=== PATIENT | female | born 1980 | race Caucasian/White ===

== ENCOUNTER → 2023-12-04 07:10 | Outpatient (REF) | payer OTHER, SELFPAY | LOC: WDC 07:10 | PROVIDERS: ATTENDING PHYSICIAN Obstetrics & Gynecology; FAMILY PHYSICIAN Nurse Practitioner Adult Health | DX: Z12.31 Encounter for screening mammogram for malignant neoplasm of breast (principal) | CPT/HCPCS: 77063; 77067 ==

== ENCOUNTER → 2024-03-29 16:04 | Outpatient (REF) | payer OTHER, SELFPAY | LOC: RAD 16:04 | PROVIDERS: ATTENDING PHYSICIAN Nurse Practitioner Adult Health | DX: M25.562 Pain in left knee (principal) | CPT/HCPCS: 73564 ==

== ENCOUNTER 2024-07-30 20:35 | Emergency (ER) | payer OTHER, SELFPAY ==
[2024-07-30 20:42] VITALS: BP 152/97
[2024-07-30 20:56] LABS: % Basophils 0.3 % (0-2); % Eosinophils 0.9 % (0-6); % Immature Granulocytes 0.4 % (0-0.5); % Lymphocytes 22.2 % (20.5-51.1); % Monocytes 10.1 % (1.7-9.3); % Neutrophils 66.1 % (42.2-75.2); Absolute Eosinophils 0.1 10^3/uL (0-0.7); Absolute Lymphocytes 2.2 10^3/uL (1.2-3.4); Absolute Neutrophils 6.6 10^3/uL (1.4-6.5); Hematocrit 41.6 % (37.0-47.0); Hemoglobin 13.9 g/dL (12.0-16.0); Mean Corp Hgb Conc. 33.4 g/dL (33.0-37.0); Mean Corpuscular Hgb 29.2 pg (27.0-31.0); Mean Corpuscular Volume 87.4 fL (81.0-99.0); Mean Platelet Volume 9.2 fL (7.4-10.4); Nucleated Red Blood Cells % 0 %; Platelet Count 286 10^3/uL (130-400); Red Blood Cell Count 4.76 10^6/uL (4.20-5.40)
[2024-07-30 21:16] LABS: ALT (SGPT) 26 U/L (0-35); AST (SGOT) 23 U/L (14-36); Albumin 4.3 g/dl (3.5-5.0); Alkaline Phosphatase 85 U/L (38-126); Blood Urea Nitrogen 21 mg/dl (7-17); Calcium 9.2 mg/dl (8.4-10.2); Carbon Dioxide 30 mmol/L (22-30); Chloride 99 mmol/L (98-107); Glucose 99 mg/dl (70-99); Potassium 3.8 mmol/L (3.5-5.1); Sodium 137 mmol/L (135-145); Total Bilirubin 0.5 mg/dl (0.2-1.3); Total Protein 6.9 g/dl (6.3-8.2); eGFR > 60.00
[2024-07-30 21:21] LABS: Troponin I < 0.012 ng/ml
[2024-07-31 01:00] VITALS: BP 119/64
--- NOTE | 2024-07-31 01:08 | ED.GENMED ---
History of Present Illness
General
Chief Complaint: Numbness
Source: patient
Exam Limitations: none
Time Seen by Provider: 07/31/24 00:16
History of Present Illness
History of Present Illness:
This is a 43 year old female that come in with c/o right forearm numbness State that this started at 9am today. States that she had been working on her Computer. States that know it feels like there is some discomfort in the right shoulder. States
that she did fall on Thursday. States that around 7:30pm tonight she started to feel a little nauseated but this may have been because she was getting a little anxious. Denies any fever, chills, chest pain, SOB, abd pain, vomiting, diarrhea,
headache, dizziness, urinary burning.
Past History
Past History
ED Past Medical History: HTN and Other (PCOS)
ED Past Surgical History: (x 1) and Other (Gastric sleeve)
Social History
Tobacco: Former smoker
Alcohol: None
Personal:
Living: with family
Review of Systems
Review of Systems
All Other Systems: ROS reviewed and negative except as documented in HPI and ROS
Constitutional: Reports no symptoms; Denies fever or chills
EENT: Reports no symptoms
Respiratory: Reports no symptoms; Denies cough or trouble breathing
Cardiac: Reports no symptoms; Denies chest pain
ABD/GI: Reports nausea; Denies abdominal pain, vomiting or diarrhea
: Reports no symptoms; Denies urgency
Musculoskeletal: Reports no symptoms
Skin: Reports no symptoms
Neurological: Reports numbness (Right forearm)
Psychiatric: Reports no symptoms
Phy Exam
General Physical Exam
General Presentation: well appearing and no apparent distress
General age: appears stated age
General Skin: warm and dry
General Habitus: obese
General Mental: alert
General Hydration: appears well hydrated
ENT Exam
ENT Exam: TM's normal, pharynx normal and neck supple
Eye Exam
Eye Exam: EOMI
Cardiovascular Exam
Cardiovascular Exam: regular rate/rhythm, no edema, no murmur and normal peripheral pulses
Pulmonary Exam
Pulmonary Exam: lungs clear, no respiratory distress, no rales, chest non tender, no crackles, no rhonchi, no wheezing and no cough
Gastrointestinal Exam
Gastrointestinal Exam: normal bowel sounds, non tender, soft, no organomegaly, no pulsatile mass, non distended and other (Obese)
Musculoskeletal Exam
Musculoskeletal Exam: full ROM, no edema and other (Slight posterior right shoulder tenderness with palpation. Negative for discomfort with abduction or cross over)
Skin Exam
Skin Exam: normal color, warm/dry, no rash and no petechia
Course
Orders/Labs/Results
Orders:
Orders
07/30/24 20:36
ECG [Electrocardiogram (*1)] Urgent
Reason for Study: Other
Other Reason for Exam: numbness
EKG- Treatment ONCE
07/30/24 20:47
Complete Blood Count/With Diff Urgent
Comprehensive Metabolic Panel Urgent
Troponin I Urgent
07/31/24 00:53
US Periph Venous UPPER Ext RT Urgent
Comment:
Reason For Exam: Right lower abd numbness
Abnormal Lab Results
07/30/24
20:47
Absolute Neuts (auto) 6.6 H 10^3/uL
(1.4-6.5)
Absolute Monos (auto) 1.0 H 10^3/uL
(0.1-0.6)
Monocytes % 10.1 H %
(1.7-9.3)
BUN 21 H mg/dl
(7-17)
07/30/24 20:47
07/30/24 20:47
Slight Dehydration. Otherwise normal labs. Troponin <0.012
Vital Signs
Initial and Last Documented VS:
Initial Vital Signs
Temp Pulse Resp BP Pulse Ox
98.5 F 84 18 152/97 98
07/30/24 20:42 07/30/24 20:42 07/30/24 20:42 07/30/24 20:42 07/30/24 20:42
Last Documented Vital Signs
Temp Pulse Resp BP Pulse Ox
98.5 F 70 23 119/64 94
07/30/24 20:42 07/31/24 02:30 07/31/24 02:30 07/31/24 01:00 07/31/24 02:30
MDM/Problems Addressed
Differential Diagnosis Includes:
DVT, carpal tunnel, Parasthesias
MDM/Problems Addressed:
This is a 43 year old female that comes in with c/o right forearm numbness. States that this started at 9am on Thursday morning. Then she started with some shoulder discomfort.
Will check labs, US for DVT and ECG.
Back into see patient. Explained that the US was negative. This may be related to some carpal tunnel due to her Computer work. Patient to follow up with the family doctor. Return with any concerns .
Chronic conditions affecting care:
NA
Acute Exacerbation and/or Progression of Chronic Illness:
NA
*Radiology
Radiology exam reviewed: other (US negative for DVT of the right arm. )
*Pulse Oximetry
Patient hypoxic: no
*EKG
Interpreted by ED Provider?: Yes
Heart Rate: 82
Rate: normal
Rhythm: sinus
[place]: normal axis
Interval: normal interval
QRS Pattern: normal QRS
Ischemia: no ischemia
*Administrative Operations Coordinator Interpretation
Rate: normal
Heart Rate: 80
Rhythm: sinus
*Critical Care Note
Total Time (30-74mins, 75-104mins- exclusive of procedures): Not Applicable
ED Attending Note
-
Portions of this chart may have been created with voice recognition software.� Occasional wrong word or��sound alike� substitutions may have occurred due to the inherent limitations of voice recognition software.
Discharge Plan
Departure
Patient Disposition: Home (Routine Discharge)
Date of Disposition: 07/31/24
Time of Disposition: 02:40
Patient with high blood pressure during this ER visit?: No
Condition: Good
Covid-19: Not Applicable
Discharge Problem:
Numbness and tingling of right arm
Instructions: Paresthesia (DC)
Prescriptions:
No Action
labetalol 300 MG tablet
400 mg PO BID
PNV cmb#95-ferrous fumarate-FA [] 1 EACH tablet
1 ea PO DAILY
Aspirin
81 mg PO DAILY
Calcium
1 tab PO DAILY
oxycodone-acetaminophen 5 MG/325 MG tablet
1 tab PO Q4HPRN PRN (Reason: moderate pain) Qty: 14 0RF
ferrous sulfate [FeroSul] 325 MG tablet
325 mg PO BID Qty: 60 0RF
ibuprofen 600 MG tablet
600 mg PO Q4HPRN PRN (Reason: cramps) Qty: 90 0RF
Activity Restrictions/Additional Instructions:
As discussed, your blood work shows very slight Dehydration. Please increase your water intake to 8-8oz glasses daily. Your Ultrasound is negative for any blood clots. This may be due to repetitive movement when on your computer. Follow up with the
family doctor for recheck. IF YOU HAVE INCREASED OR CHANGING NUMBNESS OR TINGLING, OR YOU HAVE ANY OTHER CONCERNS PLEASE RETURN TO THE EMERGENCY ROOM
Interventions
Interventions:
*Risk Screen - Suicide Last Done: 07/30/24 20:42
*General Assessment Last Done: 07/30/24 20:42
*Neglect/Abuse Screening Last Done: 07/30/24 20:42
ED- Fall Risk Assessment Last Done: 07/31/24 01:44
*ED COVID-19 Vaccine History Last Done: 07/30/24 20:42
Discharge Date and Time
Print Language: BELARUSIAN
[2024-07-31 02:45] VITALS: BP 129/84
== END 2024-07-31 02:58 | disposition home or self-care (01) ==
LOC: EMR 20:35
PROVIDERS: Emergency Medicine; EMERGENCY PHYSICIAN Emergency Medicine; FAMILY PHYSICIAN Nurse Practitioner Adult Health
DX: R20.2 Paresthesia of skin (principal); R20.0 Anesthesia of skin; R11.0 Nausea; M79.621 Pain in right upper arm; W19.XXXA Unspecified fall, initial encounter; E86.0 Dehydration; I10 Essential (primary) hypertension; E28.2 Polycystic ovarian syndrome; Z87.891 Personal history of nicotine dependence; Z98.84 Bariatric surgery status
CPT/HCPCS: 99284; 80053; 84484; 85025; 93005; 93971

== ENCOUNTER → 2024-10-19 10:50 | Outpatient (REF) | payer OTHER, SELFPAY | LOC: EMG 10:50 | PROVIDERS: ATTENDING PHYSICIAN Orthopaedic Surgery Hand Surgery; FAMILY PHYSICIAN Nurse Practitioner Adult Health | DX: G56.03 Carpal tunnel syndrome, bilateral upper limbs (principal); R20.0 Anesthesia of skin | CPT/HCPCS: 95886; 95911 ==

== ENCOUNTER → 2024-12-09 08:07 | Outpatient (REF) | payer OTHER, SELFPAY | LOC: WDC 08:07 | PROVIDERS: ATTENDING PHYSICIAN Student in an Organized Health Care Education/Training Program; FAMILY PHYSICIAN Nurse Practitioner Adult Health | DX: Z12.31 Encounter for screening mammogram for malignant neoplasm of breast (principal) | CPT/HCPCS: 77063; 77067 ==